=== PATIENT | female | born 1970 | race Caucasian/White ===

== ENCOUNTER 2016-09-02 13:15 | Emergency (ER) | payer BC ==
[2016-09-02 13:25] VITALS: BMI 22.3
[2016-09-02 13:32] VITALS: BP 129/72; PULSE 88; RESP 16; TEMP 98.8; O2SAT 99
[2016-09-02] MEDS ORDERED: Lidocaine 2% Inj (20ml) IJ STA (13:33)
--- NOTE | 2016-09-02 13:39 | ED PDOC ---
Arrival/HPI - General Chief Complaint: Abnormal Skin Integrity Time Seen by Provider: 09/02/16 13:33 Historian: Patient - History of Present Illness Narrative History of Present Illness (Text): 09/02/16 13:34 46-year-old female presents today with laceration to the right second finger status post injury. Patient states she was opening a can and sustained a laceration to the volar aspect of the second finger. She denies numbness weakness or tingling in the extremity. Denies decreased range of motion of the finger. Patient states her tetanus shot was 2 years ago. Patient states incident occurred prior to arrival. No medications have been taken for pain at home. No other complaints. Time/Duration: Prior to Arrival Symptom Onset: Sudden Symptom Course: Unchanged Quality: Stabbing, Burning Severity Level: 4 Past Medical History - Provider Review Nursing Documentation Reviewed: Yes - Travel History Have you recently traveled outside [place] w/in the past 3 mons?: No - Past History Past History: No Previous - Infectious Disease Hx of Infectious Diseases: None - Tetanus Immunization Tetanus Immunization: Up to Date (2 years ago) - Past Medical History Past Medical History: No Previous - Pulmonary Hx Asthma: Yes - Psychiatric Hx Depression: Yes Hx Substance Use: No - Surgical History Hx Appendectomy: Yes Hx Section: Yes - Anesthesia Hx Anesthesia: Yes Hx Anesthesia Reactions: No Hx Malignant Hyperthermia: No - Suicidal Assessment Feels Threatened In Home Enviroment: No Family/Social History - Physician Review Nursing Documentation Reviewed: Yes Family/Social History: Unknown Family HX Smoking Status: Never Smoked Hx Alcohol Use: Yes Hx Substance Use: No Hx Substance Use Treatment: No Allergies/Home Meds Allergies/Adverse Reactions: Allergies broccoli Allergy (Verified 09/02/16 13:25) RASH PORK Allergy (Verified 12/20/15 11:18) RASH shrimp Allergy (Verified 09/02/16 13:25) RASH Review of Systems - Review of Systems Constitutional: absent: Fatigue, Fevers Respiratory: absent: SOB, Cough Cardiovascular: absent: Chest Pain, Palpitations Gastrointestinal: absent: Abdominal Pain Musculoskeletal: Arthralgias Skin: Laceration Neurological: absent: Headache Physical Exam Vital Signs Reviewed: Yes Vital Signs Temp Pulse Resp BP Pulse Ox 09/02/16 13:30 98.8 F 88 16 129/72 99 Temperature: Afebrile Blood Pressure: Normal Pulse: Regular Respiratory Rate: Normal Appearance: Positive for: Well-Appearing, Non-Toxic, Comfortable Pain Distress: None Mental Status: Positive for: Alert and Oriented X 3 - Systems Exam Head: Present: Atraumatic Mouth: Present: Moist Mucous Membranes Neck: Present: Normal Range of Motion Respiratory/Chest: Present: Clear to Auscultation Cardiovascular: Present: Regular Rate and Rhythm Upper Extremity: Present: Normal ROM, NORMAL PULSES, Tenderness (right 2nd finger; there is a 2cm linear superficial laceration along the volar aspect of the 2nd finger at approx level of the proximal phalanx; minimal bleeding; no erythema; no edema, full rom of finger. sensation and distal pulses intact; cap refill <2. ), Neurovascularly Intact, Capillary Refill < 2s. No: Swelling, Erythema, Deformity Neurological: Present: GCS=15 Skin: Present: Warm, Dry Psychiatric: Present: Alert Medical Decision Making ED Course and Treatment: 09/02/16 13:36 Patient is nontoxic well appearing in no distress. Vital signs are stable. Wound irrigated well with high pressure irrigation Tetanus up-to-date Laceration repair: 6 sutures placed Bacitracin and dressing applied. finger splint applied. Patient was advised to keep the wound clean and dry, apply bacitracin twice daily. Advised to return immediately if signs of infection develop or return if any other concerning symptoms develop. advised f/u with hand specialist. Patient verbalizes understanding of discharge instructions and need for immediate followup. all aspects of this case were discussed the attending of record. Impression: Laceration,finger motrin every 6 hours as needed for pain Keflex; 1 capsule 4 times daily 5 days Keep the wound clean and dry, apply bacitracin twice daily Return in 7-10 days for suture removal use finger splint Return immediately if signs of infection develop: High fevers, increasing pain, redness, swelling, purulent discharge Follow up with the hand specialist within the next 2 days. Followup with primary care physician within the next 2 days Return if any other concerning symptoms develop - Medication Orders Current Medication Orders: Discontinued Medications Ibuprofen (Motrin Tab) Confirm Administered Dose 600 mg .ROUTE .STK-MED ONE Stop: 09/02/16 14:41 Last Admin: 09/02/16 14:42 Dose: 600 mg Comments: DELORES HINES Lidocaine HCl (Lidocaine 2% 20ml Vial) 3 ml IJ ONCE STA Stop: 09/02/16 13:34 Procedure: Wound Repair - Procedure Procedure: Wound Repair: laceration, finger - Consent Obtained Consent obtained: Verbal - Performed by Performed by: Mid-level Provider - Indications Indication(s):: Laceration - Location Finger:: Right, Index Shape:: Linear Dimensions Length cm: 2cm Depth:: Epidermis - Anesthetic Technique Anesthetic Technique: Regional block (digital block) Local/Regional Anesthetic:: Lidocaine 2% (2cc) - Wound Examination Wound Examination:: Other (no tendon, nerve, or vascular injury) - Debris Debris:: None - Irrigated Irrigated with ml of normal saline: copious amounts of NS using high pressure irrigation - Complexity Complexity:: Simple (one layer) - Wound repair method Sutures:: # (6), Size (5.0), Type (prolene), Technique (interrupted) - Complications Complications: none - Patient tolerated procedure Patient Tolerated Procedure:: Well Disposition/Present on Arrival - Present on Arrival Any Indicators Present on Arrival: No History of DVT/PE: No History of Uncontrolled Diabetes: No Urinary Catheter: No History of Decub. Ulcer: No History Surgical Site Infection Following: None - Disposition Have Diagnosis and Disposition been Completed?: Yes Diagnosis: Laceration of finger Disposition: HOME/ ROUTINE Disposition Time: 13:39 Patient Plan: Discharge Condition: GOOD Discharge Instructions (ExitCare): Finger Laceration (ED) Additional Instructions: motrin every 6 hours as needed for pain Keflex; 1 capsule 4 times daily 5 days Keep the wound clean and dry, apply bacitracin twice daily Return in 7-10 days for suture removal Use finger splint. Return immediately if signs of infection develop: High fevers, increasing pain, redness, swelling, purulent discharge Follow up with the hand specialist within the next 2 days. Followup with primary care physician within the next 2 days Return if any other concerning symptoms develop Prescriptions: Cephalexin [Keflex] 500 mg PO QID #20 capsule Ibuprofen [Motrin] 600 mg PO Q6H PRN #20 tab PRN Reason: pain/fever reduction Referrals: Celso Gil MD [Staff Provider] - Follow up with primary Elizabeth Tadeo MD [Staff Provider] - Follow up with primary Forms: WORK NOTE
== END 2016-09-02 14:35 | disposition home or self-care (01) ==
LOC: ED 13:15
DX: S61.210A Laceration without foreign body of right index finger without damage to nail, initial encounter (principal); W26.8XXA Contact with other sharp object(s), not elsewhere classified, initial encounter

== ENCOUNTER 2016-09-13 14:57 | Emergency (ER) | payer BC ==
[2016-09-13 14:58] VITALS: BMI 22.3
[2016-09-13 15:50] VITALS: BP 122/84; PULSE 72; RESP 16; TEMP 98.8; O2SAT 100
--- NOTE | 2016-09-13 15:51 | ED PDOC ---
Arrival/HPI - General Chief Complaint: Suture/Staple Removal Time Seen by Provider: 09/13/16 15:41 Historian: Patient - History of Present Illness Narrative History of Present Illness (Text): 09/13/16 15:48 46yo female in ED for suture removal form her right index finger. Sutures was placed here on 09/02/16. she denies fever, purulent discharge from wound, redness , any other complaint. Past Medical History - Provider Review Nursing Documentation Reviewed: Yes - Past History Past History: No Previous - Infectious Disease Hx of Infectious Diseases: None - Tetanus Immunization Tetanus Immunization: Up to Date (2 years ago) - Past Medical History Past Medical History: No Previous - Pulmonary Hx Asthma: Yes - Psychiatric Hx Depression: Yes Hx Substance Use: No - Surgical History Hx Appendectomy: Yes Hx Section: Yes - Anesthesia Hx Anesthesia: Yes Hx Anesthesia Reactions: No Hx Malignant Hyperthermia: No - Suicidal Assessment Feels Threatened In Home Enviroment: No Family/Social History - Physician Review Nursing Documentation Reviewed: Yes Family/Social History: Unknown Family HX Smoking Status: Never Smoked Hx Alcohol Use: Yes Hx Substance Use: No Hx Substance Use Treatment: No Allergies/Home Meds Allergies/Adverse Reactions: Allergies broccoli Allergy (Verified 09/13/16 15:43) RASH PORK Allergy (Verified 09/13/16 15:43) RASH shrimp Allergy (Verified 09/13/16 15:43) RASH Home Medications: Home Meds Medication Instructions Recorded Confirmed No Known Home Med 09/13/16 09/13/16 Review of Systems - Physician Review All systems were reviewed & negative as marked: Yes - Review of Systems Constitutional: Normal Eyes: Normal ENT: Normal Respiratory: Normal Cardiovascular: Normal Gastrointestinal: Normal Genitourinary Female: Normal Musculoskeletal: Normal Skin: Other (suture removal) Neurological: Normal Endocrine: Normal Hemo/Lymphatic: Normal Psychiatric: Normal Physical Exam Vital Signs Reviewed: Yes Vital Signs Temp Pulse Resp BP Pulse Ox 09/13/16 15:35 98.8 F 72 16 122/84 100 Temperature: Afebrile Blood Pressure: Normal Pulse: Regular Respiratory Rate: Normal Appearance: Positive for: Well-Appearing, Non-Toxic, Comfortable Pain Distress: None Mental Status: Positive for: Alert and Oriented X 3 - Systems Exam Head: Present: Atraumatic, Normocephalic Pupils: Present: PERRL Extroacular Muscles: Present: EOMI Conjunctiva: Present: Normal Mouth: Present: Moist Mucous Membranes Neck: Present: Normal Range of Motion Respiratory/Chest: Present: Clear to Auscultation, Good Air Exchange. No: Respiratory Distress, Accessory Muscle Use Cardiovascular: Present: Regular Rate and Rhythm, Normal S1, S2. No: Murmurs Abdomen: Present: Normal Bowel Sounds. No: Tenderness, Distention, Peritoneal Signs Back: Present: Normal Inspection Upper Extremity: Present: Normal Inspection. No: Cyanosis, Edema Lower Extremity: Present: Normal Inspection. No: Edema Neurological: Present: GCS=15, CN II-XII Intact, Speech Normal Skin: Present: Warm, Dry, Normal Color, Other ([address] on right index finger. No erythema. No purulent discharge. No sign of infection noted). No: Rashes Psychiatric: Present: Alert, Oriented x 3, Normal Insight, Normal Concentration Medical Decision Making ED Course and Treatment: 09/13/16 15:49 Suture cleaned with betadine. 6sutures removed and bacitracine applied. Edges appear well approximated. Advised to continue keeping wound clean and dry. Disposition/Present on Arrival - Present on Arrival Any Indicators Present on Arrival: No History of DVT/PE: No History of Uncontrolled Diabetes: No Urinary Catheter: No History of Decub. Ulcer: No History Surgical Site Infection Following: None - Disposition Have Diagnosis and Disposition been Completed?: Yes Diagnosis: Visit for suture removal Disposition: HOME/ ROUTINE Disposition Time: 15:50 Patient Plan: Discharge Condition: STABLE Discharge Instructions (ExitCare): Stitches Removal (ED) Additional Instructions: Keep wound clan and dry Follow up with your Doctor Return to ED for any new or worsening symptoms Referrals: Rodrigue Bass Jr., MD [Primary Care Provider] - Follow up with primary
== END 2016-09-13 16:10 | disposition home or self-care (01) ==
LOC: ED 14:57
DX: Z48.02 Encounter for removal of sutures (principal)